=== PATIENT | female | born 1965 | race Caucasian/White ===

== ENCOUNTER 2021-04-01 08:19 | Day surgery (SDC) | payer MEDICAID ==
[2021-04-01] MEDS ORDERED: Midazolam 1 MG/ML 2 ML SDV IV ONE (08:20)
[2021-04-01] MEDS ORDERED: Scopolamine 1.5 MG Transdermal Patch TOP ONE (08:20)
[2021-04-01] MEDS ORDERED: Rocuronium 50 MG/5 ML Vial IV ONE (08:20)
[2021-04-01] MEDS ORDERED: fentaNYL 100 MCG/2 ML SDV IV ONE (08:20)
[2021-04-01] MEDS ORDERED: Ketorolac 30 MG/ML SDV IVPUSH ONE (08:20)
[2021-04-01] MEDS ORDERED: Ondansetron 4 MG/2 ML SDV IVPUSH ONE (08:20)
[2021-04-01] MEDS ORDERED: Glycopyrrolate 0.2 MG/ML 5 ML MDV IV ONE (08:20)
[2021-04-01] MEDS ORDERED: Propofol 200 MG/20 ML SDV IV ONE (08:20)
[2021-04-01] MEDS ORDERED: Lactated Ringers 1,000 ML IV ONE (08:20)
[2021-04-01] MEDS ORDERED: Lactated Ringers 1,000 ML IV SCH (08:30)
[2021-04-01] MEDS ORDERED: Sodium Chloride 0.9% 10 ML Syringe FLUSH PRN (08:30)
--- NOTE | 2021-04-01 10:19 | PCM.HPR ---
H & P Addendum review - H & P Addendum Review Date of Original H & P: 03/11/21 Date Reviewed: 04/01/21 Time Reviewed: 10:19 Patient was Examined: No Changes
--- NOTE | 2021-04-01 12:02 | PCM.OPNOTE ---
- General Post-Op/Procedure Note Date of Surgery/Procedure: 04/01/21 Operative Procedure(s): Lap jared Findings: Chronic Cholecystitis Pre Op Diagnosis: Chronic Cholecystitis Post-Op Diagnosis: Same Anesthesia Technique: General ET Tube Primary Surgeon: Dontrell Chakraborty Pathology: GB EBL in mLs: 5 Complications: None Condition: Good
[2021-04-01] MEDS ORDERED: Albuterol/Ipratropium 3.0-0.5 MG/3 ML Neb Soln NEB ONE (13:05)
--- NOTE | 2021-04-01 14:11 | OR ---
DATE OF OPERATION: 04/01/2021 SURGEON: Dontrell Chakraborty MD PREOPERATIVE DIAGNOSIS: Chronic cholecystitis. POSTOPERATIVE DIAGNOSIS: Chronic cholecystitis. PROCEDURE: Laparoscopic cholecystectomy. ANESTHESIA: General. DESCRIPTION OF PROCEDURE: The patient was brought to the operating room where general endotracheal anesthesia was administered. Time-out was performed. The abdomen was prepped and draped sterilely. An infraumbilical incision was made and extended into the peritoneal cavity without difficulty. The Narayan cannulator was introduced and pneumoperitoneum obtained. Three 5 mm ports were placed in the usual positions. The patient was placed in reverse Trendelenburg position and rotated to the left. Gallbladder was grasped and retracted cephalad. The gallbladder was mostly intrahepatic making dissection and visualization more difficult. The peritoneum was stripped around the lower portion of the gallbladder and the cystic artery was divided into 3 branches coursing around the gallbladder neck and keeping it close to the liver. I had to carefully dissect away these branches to expose the neck of the gallbladder. The branches were clipped proximally and either clipped or cauterized distally. I was able to then work around the base of the gallbladder and dissect the neck circumferentially. There was much fibrous connective tissue keeping the cystic duct adherent to the base of the liver. I was careful to fully dissect this away and fibrous bands cauterized to expose this. I was then able to see enough the cystic duct and milked it back into the gallbladder, and then doubly clipped it proximally and once distally and then transected it. Gallbladder was then removed from the bed of the liver without difficulty. It was brought out through the umbilical port site. The right upper quadrant was inspected and irrigated, and return was clear and hemostasis assured. Ports were removed under direct vision and remained hemostatic. Umbilical fascia was closed with [id number] 0 Vicryl. Skin was closed with 4-0 Vicryl subcuticular sutures. Benzoin and Steri-Strips were placed and Band-Aids applied. The patient tolerated the procedure well. Estimated blood loss 5 mL. She returned to postanesthesia in stable condition. /[id number] LAURA/JAMAL BEEBE
== END 2021-04-01 14:00 | disposition home or self-care (01) ==
LOC: FB.SDS 08:19
PROVIDERS: ATTEND Surgery
DX: K81.1 Chronic cholecystitis (principal); E11.9 Type 2 diabetes mellitus without complications; Z88.0 Allergy status to penicillin; Z88.2 Allergy status to sulfonamides; Z88.6 Allergy status to analgesic agent
CPT/HCPCS: 00790; 47562; 71045; 82947; 88304; 94150; 94640; A9270; J1885; J2250; J2405; J2704; J3010; J3490; J7120; J7620-GY

== ENCOUNTER 2021-07-29 21:55 | Emergency (ER) | payer MEDICAID, OTHER ==
[2021-07-29] MEDS ORDERED: Insulin Lispro 100 Unit/ML 3 ML KwikPen SUBCUT ONE (21:56)
[2021-07-29] MEDS ORDERED: Sodium Chloride 0.9% 10 ML Syringe FLUSH PRN (22:33)
[2021-07-29] MEDS ORDERED: Ketorolac 30 MG/ML SDV IVPUSH ONE (22:34)
[2021-07-29] MEDS ORDERED: Labetalol 20 MG/4 ML Syringe IVPUSH ONE (22:34)
[2021-07-29] MEDS ORDERED: Ondansetron 4 MG/2 ML SDV IVPUSH STA (22:58)
[2021-07-29] MEDS ORDERED: Glucagon,Human Recombinant 1 MG Vial IM PRN (23:10)
[2021-07-29] MEDS ORDERED: Insulin Lispro 100 Unit/ML 3 ML KwikPen SUBCUT STA (23:10)
[2021-07-29] MEDS ORDERED: 50% Dextrose in Water 50 ML Syringe IVPUSH PRN (23:10)
--- NOTE | 2021-07-29 23:10 | EDM.PDOC ---
ED HPI GENERAL MEDICAL PROBLEM - General Stated Complaint: HIGH BP Time Seen by Provider: 07/29/21 22:30 Source of Information: Reports: Patient, Family History Limitations: Reports: No Limitations - History of Present Illness INITIAL COMMENTS - FREE TEXT/NARRATIVE: Patient presented to the ED with her because of headache and elevated BP of 180/120. There is no associated chest pain, dyspnea, palpitations. She also has a history of HTN taking Coreg 25 mg BID and DM2 which is poorly controlled. Headache Pain Score (Numeric/FACES): 8 - Related Data Allergies Allergy/AdvReac Type Severity Reaction Status Date / Time hydroxychloroquine Allergy Dizziness Verified 07/29/21 22:33 [From Plaquenil] Penicillins Allergy Rash Verified 07/29/21 22:33 sulfamethoxazole Allergy Rash Verified 07/29/21 22:33 [From Bactrim] trimethoprim [From Bactrim] Allergy Rash Verified 07/29/21 22:33 Home Meds: Home Meds Anastrozole [Arimidex] 1 mg PO DAILY 03/31/21 [History] Aspirin [Adult Low Dose Aspirin EC] 81 mg PO DAILY 03/31/21 [History] Cyanocobalamin (Vitamin B-12) [Vitamin B-12] 1,000 mcg PO DAILY 03/31/21 [History] Cyclobenzaprine [Flexeril] 10 mg PO TID PRN 03/31/21 [History] Empagliflozin [Jardiance] 25 mg PO DAILY 03/31/21 [History] Escitalopram [Lexapro] 10 mg PO BEDTIME 03/31/21 [History] Gabapentin [Neurontin] 600 mg PO QID 03/31/21 [History] Insulin Glarg,Human.Rec.Analog [Lantus Solostar] 55 unit SQ BID 03/31/21 [History] Levothyroxine 25 mcg PO ACBREAKFAST 03/31/21 [History] Lidocaine 4% [Aspercreme 4%] 1 each TP DAILY 03/31/21 [History] Magnesium Chloride [Mag Delay] 64 mg PO DAILY 03/31/21 [History] Montelukast [Singulair] 10 mg PO BEDTIME 03/31/21 [History] Multivitamin with Minerals [Multiple Vitamin] 1 tab PO DAILY 03/31/21 [History] Nitroglycerin [Nitrostat] 0.4 mg SL ASDIRECTED PRN 03/31/21 [History] Omeprazole 20 mg PO BIDAC 03/31/21 [History] SUMAtriptan 100 mg PO ASDIRECTED PRN 03/31/21 [History] Topiramate [Topamax] 150 mg PO BEDTIME 03/31/21 [History] Venlafaxine HCl [Venlafaxine ER] 150 mg PO DAILY 03/31/21 [History] amLODIPine [Norvasc] 7.5 mg PO DAILY 03/31/21 [History] atorvaSTATin [Lipitor] 10 mg PO DAILY 03/31/21 [History] carvediloL [Carvedilol] 25 mg PO BIDMEALS 03/31/21 [History] lamoTRIgine [Lamictal] 150 mg PO DAILY 03/31/21 [History] metFORMIN [Glucophage] 1,000 mg PO BIDMEALS 03/31/21 [History] Benzonatate [Tessalon Perles] 100 mg PO TID 07/30/21 [History] Galcanezumab-Gnlm [Emgality] 120 mg SQ ASDIRECTED 07/30/21 [History] Insulin Aspart [Novolog Flexpen] 5 - 10 unit SQ TID 07/30/21 [History] Metoclopramide [Reglan] 5 mg PO QIDACANDBED 07/30/21 [History] hydrOXYzine pamoate [Hydroxyzine Pamoate] 100 mg PO TID 07/30/21 [History] Past Medical History Cardiovascular History: Reports: CAD, High Cholesterol, Hypertension Respiratory History: Reports: None, SOB Musculoskeletal History: Reports: RA Neurological History: Reports: Migraines Psychiatric History: Reports: Depression Endocrine/Metabolic History: Reports: Diabetes, Type II, Hypothyroidism, Obesity/BMI 30+ Oncologic (Cancer) History: Reports: Breast - Past Surgical History Cardiovascular Surgical History: Reports: Coronary Artery Stent GI Surgical History: Reports: EGD Social & Family History - Caffeine Use Caffeine Use: Reports: Soda ED ROS GENERAL - Review of Systems Review Of Systems: See Below Constitutional: Reports: No Symptoms HEENT: Reports: No Symptoms Respiratory: Reports: No Symptoms Cardiovascular: Reports: No Symptoms Endocrine: Reports: No Symptoms GI/Abdominal: Reports: No Symptoms : Reports: No Symptoms Musculoskeletal: Reports: No Symptoms Skin: Reports: No Symptoms Neurological: Reports: Headache Psychiatric: Reports: No Symptoms ED EXAM, GENERAL - Physical Exam Exam: See Below Exam Limited By: No Limitations General Appearance: Alert, No Apparent Distress Eye Exam: Bilateral Eye: PERRL Ears: Normal External Exam, Normal Canal Nose: Normal Inspection, Normal Mucosa, No Blood Throat/Mouth: Normal Inspection, Normal Lips, Normal Teeth Head: Atraumatic, Normocephalic Neck: Normal Inspection, Supple, Non-Tender, Full Range of Motion Respiratory/Chest: No Respiratory Distress, Lungs Clear, Normal Breath Sounds, No Accessory Muscle Use, Chest Non-Tender Cardiovascular: Normal Peripheral Pulses, Regular Rate, Rhythm, No Edema, No G allop, No JVD, No Murmur, No Rub GI/Abdominal: Normal Bowel Sounds, Soft, Non-Tender, No Organomegaly, No Distention, No Abnormal Bruit Extremities: Normal Inspection, Normal Range of Motion, Non-Tender, No Pedal Edema, Normal Capillary Refill Neurological: Alert, Oriented, CN II-XII Intact, Normal Cognition, Normal Gait, Normal Reflexes, No Motor/Sensory Deficits Psychiatric: Normal Affect Skin Exam: Warm Course - Vital Signs Text/Narrative:: Lab result was reviewed and discussed with patient and her spouse Labetalol 20 mg IV x2 Toradol 30 mg IV x1 Humalog 20 U SC x1 Zofran 4 mg IV x1 Last Recorded V/S: Last Vital Signs Temp 36.3 C 07/29/21 22:15 Pulse 93 07/29/21 22:15 Resp 20 07/29/21 22:15 BP 174/121 H 07/29/21 22:15 Pulse Ox 97 07/29/21 22:15 - Orders/Labs/Meds Orders: Active Orders 24 hr Category Date Time Status Peripheral IV Insertion Adult [OM.PC] Routine Oth 07/29/21 22:33 Ordered Labs: Laboratory Tests 07/29/21 07/29/21 07/29/21 Range/Units 22:40 22:40 22:40 WBC 7.2 (3.0-10.3) x10-3/uL RBC 5.23 H (3.60-5.20) x10(6)uL Hgb 13.3 (11.4-15.5) g/dL Hct 39.7 (34.2-48.2) % MCV 75.8 L (76.7-100.5) fL MCH 25.5 (23.9-33.9) pg MCHC 33.6 (31.9-34.8) g/dL RDW 15.1 (12.3-16.5) % Plt Count 212 (151-488) x10(3)uL MPV 7.1 (7.1-12.4) fL Neut % (Auto) 70.6 (30.8-76.2) % Lymph % (Auto) 19.7 (18.4-52.1) % [place] % (Auto) 5.8 (4.4-15.7) % Eos % (Auto) 2.6 (0.6-8.1) % Baso % (Auto) 1.3 (0.2-1.5) % Neut # (Auto) 5.1 (1.5-6.3) x10-3/uL Lymph # (Auto) 1.4 (1.0-4.4) x10-3/uL [place] # (Auto) 0.4 (0.3-1.0) x10-3/uL Eos # (Auto) 0.2 (0.0-0.8) x10-3/uL Baso # (Auto) 0.1 (0.0-0.1) x10-3/uL Sodium 133 L (135-145) mmol/L Potassium 3.6 (3.5-5.3) mmol/L Chloride 98 L (100-110) mmol/L Carbon Dioxide 26 (21-32) mmol/L BUN 11 (7-18) mg/dL Creatinine 0.9 (0.55-1.02) mg/dL Est Cr Clr Drug Dosing TNP Estimated GFR (MDRD) > 60 (>60) BUN/Creatinine Ratio 12.2 (9-20) Glucose 456 H* (80-116) mg/dL POC Glucose (80-116) mg/dL Calcium 8.2 L (8.6-10.2) mg/dL Total Bilirubin 0.6 (0.1-1.3) mg/dL AST 15 D (5-25) IU/L ALT 24 D (12-36) U/L Alkaline Phosphatase 137 H (56-112) IU/L Troponin I 14.3 (4.0-60.3) pg/mL Total Protein 6.6 (6.0-8.0) g/dL Albumin 3.7 (3.5-5.2) g/dL Globulin 2.9 g/dL Albumin/Globulin Ratio 1.3 07/30/21 Range/Units 00:57 WBC (3.0-10.3) x10-3/uL RBC (3.60-5.20) x10(6)uL Hgb (11.4-15.5) g/dL Hct (34.2-48.2) % MCV (76.7-100.5) fL MCH (23.9-33.9) pg MCHC (31.9-34.8) g/dL RDW (12.3-16.5) % Plt Count (151-488) x10(3)uL MPV (7.1-12.4) fL Neut % (Auto) (30.8-76.2) % Lymph % (Auto) (18.4-52.1) % [place] % (Auto) (4.4-15.7) % Eos % (Auto) (0.6-8.1) % Baso % (Auto) (0.2-1.5) % Neut # (Auto) (1.5-6.3) x10-3/uL Lymph # (Auto) (1.0-4.4) x10-3/uL [place] # (Auto) (0.3-1.0) x10-3/uL Eos # (Auto) (0.0-0.8) x10-3/uL Baso # (Auto) (0.0-0.1) x10-3/uL Sodium (135-145) mmol/L Potassium (3.5-5.3) mmol/L Chloride (100-110) mmol/L Carbon Dioxide (21-32) mmol/L BUN (7-18) mg/dL Creatinine (0.55-1.02) mg/dL Est Cr Clr Drug Dosing Estimated GFR (MDRD) (>60) BUN/Creatinine Ratio (9-20) Glucose (80-116) mg/dL POC Glucose 378 H D (80-116) mg/dL Calcium (8.6-10.2) mg/dL Total Bilirubin (0.1-1.3) mg/dL AST (5-25) IU/L ALT (12-36) U/L Alkaline Phosphatase (56-112) IU/L Troponin I (4.0-60.3) pg/mL Total Protein (6.0-8.0) g/dL Albumin (3.5-5.2) g/dL Globulin g/dL Albumin/Globulin Ratio Meds: Medications Discontinued Medications Generic Name Dose Route Start Last Admin Trade Name Freq PRN Reason Stop Dose Admin Dextrose/Water 50 ml 07/29/21 23:10 50% Dextrose In Water 50 Ml Syringe IVPUSH ASDIRECTED PRN Hypoglycemia Glucagon 1 mg 07/29/21 23:10 Glucagon,Human Recombinant 1 Mg Vial IM ASDIRECTED PRN Hypoglycemia Insulin Human Lispro 20 unit 07/29/21 23:10 07/29/21 23:39 Insulin Lispro 100 Unit/Ml 3 Ml Kwikpen SUBCUT 07/29/21 23:11 20 units NOW STA Administration Insulin Human Lispro 300 unit 07/29/21 21:56 Insulin Lispro 100 Unit/Ml 3 Ml Kwikpen SUBCUT 07/29/21 21:57 .STK-MED ONE Ketorolac Tromethamine 30 mg 07/29/21 22:34 07/29/21 23:20 Ketorolac 30 Mg/Ml Sdv IVPUSH 07/29/21 22:35 30 mg ONETIME ONE Administration Labetalol HCl 20 mg 07/29/21 22:34 07/29/21 23:25 Labetalol 20 Mg/4 Ml Syringe IVPUSH 07/29/21 22:35 20 mg ONETIME ONE Administration Protocol Labetalol HCl 20 mg 07/29/21 23:55 07/30/21 00:10 Labetalol 20 Mg/4 Ml Syringe IVPUSH 07/29/21 23:56 20 mg NOW STA Administration Protocol Labetalol HCl Confirm 07/30/21 00:08 07/30/21 00:20 Labetalol 20 Mg/4 Ml Syringe Administered 07/30/21 00:09 Not Given Dose 20 mg .ROUTE .STK-MED ONE Ondansetron HCl 4 mg 07/29/21 22:58 07/29/21 23:21 Ondansetron 4 Mg/2 Ml Sdv IVPUSH 07/29/21 22:59 4 mg NOW STA Administration Sodium Chloride 10 ml 07/29/21 22:33 07/29/21 23:20 Sodium Chloride 0.9% 10 Ml Syringe FLUSH 10 ml ASDIRECTED PRN Administration Keep Vein Open Departure - Departure Time of Disposition: 12:00 Disposition: Home, Self-Care 01 Condition: Good Clinical Impression: Hypertensive crisis, Hyperglycemia due to type 2 diabetes mellitus - Discharge Information Instructions: Hyperglycemia, [id number], Hypertension, Adult, [id number] Referrals: Daria Moore SENIOR MECHANICAL TECHNICIAN [Primary Care Provider] - Forms: ED Department Discharge Additional Instructions: Please read discharge instructions on high blood pressure Low salt,low fat diet and exercise Coreg 25 mg twice daily Increase your amlodipine from 7.5 mg to 10 mg daily starting tomorrow Be serious about the treatment regimen for your diabetes , it's poorly controlled Take Lantus insulin when get home Follow up tomorrow with your regular MD at the clinic - My Orders Last 24 Hours: My Active Orders 07/29/21 22:33 Peripheral IV Insertion Adult [OM.PC] Routine - Assessment/Plan Last 24 Hours: My Active Orders 07/29/21 22:33 Peripheral IV Insertion Adult [OM.PC] Routine
[2021-07-29] MEDS ORDERED: Labetalol 20 MG/4 ML Syringe IVPUSH STA (23:55)
[2021-07-30] MEDS ORDERED: Labetalol 20 MG/4 ML Syringe ONE (00:08)
== END 2021-07-30 01:15 | disposition home or self-care (01) ==
LOC: FB.ED 21:55
DX: I16.9 Hypertensive crisis, unspecified (principal); E11.65 Type 2 diabetes mellitus with hyperglycemia; I25.10 Atherosclerotic heart disease of native coronary artery without angina pectoris; E78.00 Pure hypercholesterolemia, unspecified; M06.9 Rheumatoid arthritis, unspecified; E03.9 Hypothyroidism, unspecified; E66.9 Obesity, unspecified; Z68.29 Body mass index [BMI] 29.0-29.9, adult; Z88.8 Allergy status to other drugs, medicaments and biological substances; Z88.0 Allergy status to penicillin; Z88.2 Allergy status to sulfonamides; Z79.82 Long term (current) use of aspirin; Z79.4 Long term (current) use of insulin; Z79.899 Other long term (current) drug therapy
CPT/HCPCS: 36415; 80053; 82947; 84484; 85025; 96374; 96375; 96376; 99284-25; J1815; J1885; J2405; J3490

== ENCOUNTER 2021-07-31 05:17 | Emergency (ER) | payer MEDICAID, OTHER ==
[2021-07-31] MEDS ORDERED: Sodium Chloride 0.9% 10 ML Syringe FLUSH PRN (05:32)
[2021-07-31] MEDS ORDERED: Enalaprilat 1.25 MG/ML SDV IVPUSH ONE (05:32)
[2021-07-31] MEDS ORDERED: Ondansetron 4 MG/2 ML SDV IVPUSH ONE (06:16)
[2021-07-31] MEDS ORDERED: Ketorolac 30 MG/ML SDV IVPUSH ONE (06:16)
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
[2021-07-31] MEDS ORDERED: Potassium Chloride 10 MEQ in Premix Bag 1 BAG IV ONE (06:25)
[2021-07-31] MEDS: Potassium Chloride 20 MEQ Tab.ER PO ONE ×2 (06:30→07:44)
[2021-07-31] MEDS ORDERED: Labetalol 20 MG/4 ML Syringe IVPUSH STA ×2 (08:17→08:27)
[2021-07-31] MEDS ORDERED: Potassium Chloride 20 MEQ Tab.ER PO ONE (08:17)
[2021-07-31] MEDS ORDERED: Hydrochlorothiazide 25 MG Tab PO SCH (09:00)
[2021-07-31] MEDS ORDERED: Hydrochlorothiazide/Lisinopril 25-20 MG Tab PO SCH (09:00)
[2021-07-31] MEDS ORDERED: Lisinopril 20 MG Tab PO SCH (09:00)
== END 2021-07-31 09:15 | disposition home or self-care (01) ==
LOC: FB.ED 05:17
DX: I16.9 Hypertensive crisis, unspecified (principal); I10 Essential (primary) hypertension; E87.6 Hypokalemia; E11.65 Type 2 diabetes mellitus with hyperglycemia; E11.42 Type 2 diabetes mellitus with diabetic polyneuropathy; E03.9 Hypothyroidism, unspecified; E66.9 Obesity, unspecified; I25.10 Atherosclerotic heart disease of native coronary artery without angina pectoris; E78.00 Pure hypercholesterolemia, unspecified; Z68.29 Body mass index [BMI] 29.0-29.9, adult; Z95.5 Presence of coronary angioplasty implant and graft; Z88.0 Allergy status to penicillin; Z88.1 Allergy status to other antibiotic agents; Z88.8 Allergy status to other drugs, medicaments and biological substances; Z79.82 Long term (current) use of aspirin; Z79.4 Long term (current) use of insulin; Z79.899 Other long term (current) drug therapy; Z20.822 Contact with and (suspected) exposure to COVID-19
CPT/HCPCS: 36415; 70450; 80048; 84484; 93005; 96365; 96374; 96375; 99284-25; A9270-GY; J1885; J2405; J3480; J3490; U0002

== ENCOUNTER 2022-08-05 09:45 | Emergency (ER) | payer MEDICAID ==
[2022-08-05] MEDS ORDERED: hydrOXYzine HCl 50 MG/ML SDV IM ONE (11:04)
[2022-08-05] MEDS ORDERED: SUMAtriptan 6 MG/0.5 ML SDV SUBCUT ONE (11:04)
[2022-08-05 11:24] LABS: ESTIMATED GFR 59 mL/min (>60)
== END 2022-08-05 12:00 | disposition home or self-care (01) ==
LOC: FB.ED 09:45
DX: G43.909 Migraine, unspecified, not intractable, without status migrainosus (principal); T50.B95A Adverse effect of other viral vaccines, initial encounter; E87.6 Hypokalemia; I25.10 Atherosclerotic heart disease of native coronary artery without angina pectoris; E78.00 Pure hypercholesterolemia, unspecified; I10 Essential (primary) hypertension; M06.9 Rheumatoid arthritis, unspecified; E11.9 Type 2 diabetes mellitus without complications; E03.9 Hypothyroidism, unspecified; E66.9 Obesity, unspecified; Z68.25 Body mass index [BMI] 25.0-25.9, adult; Z88.8 Allergy status to other drugs, medicaments and biological substances; Z88.2 Allergy status to sulfonamides; Z79.82 Long term (current) use of aspirin; Z79.4 Long term (current) use of insulin; Z79.899 Other long term (current) drug therapy
CPT/HCPCS: 36415; 80048; 85025; 96372; 99284; J3030; J3410

== ENCOUNTER 2022-12-16 14:49 | Inpatient (IN) | payer MEDICAID, OTHER ==
[2022-12-16] MEDS ORDERED: Sodium Chloride 0.9% 500 ML IV ONE (16:52)
[2022-12-16] MEDS ORDERED: Sodium Chloride 0.9% 10 ML Syringe FLUSH PRN (16:52)
[2022-12-16] MEDS ORDERED: Ondansetron 4 MG/2 ML SDV IVPUSH ONE (16:53)
[2022-12-16 17:40] LABS: ESTIMATED GFR 35 mL/min (>60)
[2022-12-16] MEDS: Sodium Chloride 0.9% 1,000 ML IV SCH ×2 (17:48→22:45)
[2022-12-16] MEDS ORDERED: Glucagon,Human Recombinant 1 MG Vial IM PRN (19:20)
[2022-12-16] MEDS ORDERED: Insulin Regular, Human 100 Units/ML 3 ML Vial IV ONE (19:20)
[2022-12-16] MEDS ORDERED: Sodium Chloride 0.9% 1,000 ML IV ONE (19:20)
[2022-12-16] MEDS ORDERED: 50% Dextrose in Water 50 ML Syringe IVPUSH PRN (19:20)
[2022-12-17] MEDS ORDERED: Ondansetron 4 MG/2 ML SDV IV PRN (01:05)
[2022-12-17] MEDS ORDERED: 50% Dextrose in Water 50 ML Syringe IVPUSH PRN (01:12)
[2022-12-17] MEDS ORDERED: Glucagon,Human Recombinant 1 MG Vial IM PRN (01:12)
[2022-12-17] MEDS ORDERED: cefTRIAXone 2 GM Vial IVPUSH SCH (01:30)
[2022-12-17] MEDS ORDERED: Lidocaine 4% 1 each Patch TOP SCH (04:15)
[2022-12-17 07:01] LABS: ESTIMATED GFR 75 mL/min (>60)
[2022-12-17] MEDS: Sodium Chloride 0.9% 1,000 ML IV SCH (07:01)
[2022-12-17] MEDS ORDERED: Insulin Lispro 100 Unit/ML 3 ML KwikPen SUBCUT ONE (07:32)
[2022-12-17] MEDS: Insulin Lispro 100 Unit/ML 3 ML KwikPen SUBCUT SCH ×4 (07:34→20:53)
[2022-12-17] MEDS: Potassium Chloride 20 MEQ Tab.ER PO SCH ×3 (09:00→21:07)
[2022-12-17] MEDS: NS + KCl 20mEq/L 1,000 ML IV SCH ×2 (09:00→16:44)
[2022-12-17] MEDS ORDERED: Cyclobenzaprine 10 MG Tab PO PRN (09:18)
[2022-12-17] MEDS: Gabapentin 600 MG Tab PO SCH ×4 (10:15→21:12)
[2022-12-17] MEDS: Acetaminophen 325 MG Tab PO PRN ×2 (13:27→17:32)
[2022-12-17] MEDS ORDERED: Cyclobenzaprine 10 MG Tab PO SCH (21:00)
[2022-12-17] MEDS ORDERED: Levothyroxine 25 MCG Tab PO SCH (21:00)
[2022-12-17] MEDS ORDERED: Anastrozole 1 MG Tab PO SCH (21:00)
[2022-12-17] MEDS ORDERED: Aspirin 81 MG Tab.EC PO SCH (21:00)
[2022-12-17] MEDS ORDERED: Escitalopram 10 MG Tab PO SCH (21:00)
[2022-12-17] MEDS ORDERED: Cyanocobalamin (Vitamin B12) 1,000 MCG Tab PO SCH (21:00)
[2022-12-17] MEDS ORDERED: atorvaSTATin 10 MG Tab PO SCH (21:00)
[2022-12-17] MEDS ORDERED: hydrOXYzine HCl 25 MG Tab PO SCH (21:00)
[2022-12-17] MEDS ORDERED: Topiramate 50 MG Tab PO SCH (21:00)
[2022-12-17] MEDS ORDERED: Multivitamins with Iron/Calcium/Folic Acid/Minerals Tab PO SCH (21:00)
[2022-12-17] MEDS ORDERED: Empagliflozin 25 MG Tab PO SCH (21:00)
[2022-12-17] MEDS ORDERED: Venlafaxine 150 MG Cap.ER PO SCH (21:00)
[2022-12-17] MEDS ORDERED: lamoTRIgine 100 MG Tab PO SCH (21:00)
[2022-12-18] MEDS: NS + KCl 20mEq/L 1,000 ML IV SCH ×2 (01:21→08:33)
[2022-12-18] MEDS: oxyCODONE 5 MG Tab PO PRN ×2 (05:46→14:45)
[2022-12-18 06:43] LABS: ESTIMATED GFR 105 mL/min (>60)
[2022-12-18 07:08] LABS: HEMOGLOBIN A1C 10.7 % (<5.7)
[2022-12-18] MEDS: Insulin Lispro 100 Unit/ML 3 ML KwikPen SUBCUT SCH ×2 (08:28→13:14)
[2022-12-18] MEDS: Potassium Chloride 20 MEQ Tab.ER PO SCH ×2 (08:29→13:16)
[2022-12-18] MEDS: Gabapentin 600 MG Tab PO SCH ×2 (08:32→13:17)
[2022-12-18] MEDS ORDERED: Lidocaine 4% 1 each Patch TOP SCH (09:00)
== END 2022-12-18 15:55 | disposition home or self-care (01) | DRG 638 ==
LOC: FB.ED 14:49 → FB.MS 22:30 → OBSVTOIN 12-17 09:20
PROVIDERS: ADMIT Emergency Medicine; ATTEND Family Medicine
DX: E11.65 Type 2 diabetes mellitus with hyperglycemia (principal); F33.1 Major depressive disorder, recurrent, moderate; S22.49XA Multiple fractures of ribs, unspecified side, initial encounter for closed fracture; I25.10 Atherosclerotic heart disease of native coronary artery without angina pectoris; E87.6 Hypokalemia; I95.9 Hypotension, unspecified; E78.5 Hyperlipidemia, unspecified; M06.9 Rheumatoid arthritis, unspecified; H54.7 Unspecified visual loss; E78.00 Pure hypercholesterolemia, unspecified; N32.81 Overactive bladder; I10 Essential (primary) hypertension; E11.42 Type 2 diabetes mellitus with diabetic polyneuropathy; Z88.0 Allergy status to penicillin; Z88.2 Allergy status to sulfonamides; Z88.1 Allergy status to other antibiotic agents; Z79.82 Long term (current) use of aspirin; Z79.890 Hormone replacement therapy; Z79.899 Other long term (current) drug therapy; Z98.49 Cataract extraction status, unspecified eye; Z90.710 Acquired absence of both cervix and uterus; W19.XXXA Unspecified fall, initial encounter
CPT/HCPCS: 36415; 70450; 71250; 72125; 74176; 80048; 80053; 81001; 82947; 83036; 83605; 83735; 84132; 84484; 85025; 87086; 87088; 87186; 93005; 96361; 96374; 96375; 97161-GP; 97165-GO; 99285-25; A9270-GY; G0378; J0696; J1815; J1815-GY; J2405; J3480; J7030; J7040; U0002

== ENCOUNTER 2023-04-16 10:29 | Emergency (ER) | payer MEDICAID, OTHER ==
[2023-04-16] MEDS ORDERED: Acetaminophen/oxyCODONE 325-5 MG Tab PO ONE (10:30)
[2023-04-16] MEDS ORDERED: Ondansetron 4 MG Tab.DIS PO ONE (10:30)
[2023-04-16] MEDS: Sodium Chloride 0.9% 10 ML Syringe FLUSH PRN ×2 (10:35→18:43)
[2023-04-16] MEDS ORDERED: Sodium Chloride 0.9% 1,000 ML IV SCH ×2 (11:00→12:15)
[2023-04-16 11:12] LABS: BASOPHILS ABSOLUTE AUTO 0.1 x10-3/uL (0.0-0.1); EOSINOPHILS ABSOLUTE AUTO 0.3 x10-3/uL (0.0-0.8); EOSINOPHILS PERCENT AUTO 2.4 % (0.6-8.1); HEMATOCRIT 33.3 % (34.2-48.2); LYMPHOCYTES ABSOLUTE AUTO 1.3 x10-3/uL (1.0-4.4); LYMPHOCYTES PERCENT AUTO 12.4 % (18.4-52.1); MEAN CORPUSCULAR HEMOGLOBIN 28.4 pg (23.9-33.9); MEAN CORPUSCULAR HGB CONC 36.1 g/dL (31.9-34.8); MEAN CORPUSCULAR VOLUME 78.8 fL (76.7-100.5); MEAN PLATELET VOLUME 7.4 fL (7.1-12.4); MONOCYTES ABSOLUTE AUTO 0.6 x10-3/uL (0.3-1.0); MONOCYTES PERCENT AUTO 6.1 % (4.4-15.7); NEUTROPHILS ABSOLUTE AUTO 8.4 x10-3/uL (1.5-6.3); NEUTROPHILS PERCENT AUTO 78.1 % (30.8-76.2); PLATELET COUNT,PLT 237 x10(3)uL (151-488); RED BLOOD CELL COUNT 4.23 x10(6)uL (3.60-5.20); WHITE BLOOD CELL COUNT,WBC 10.7 x10-3/uL (3.0-10.3)
[2023-04-16 11:25] LABS: A/G RATIO 1.1; ALANINE AMINOTRANSFERASE,ALT 17 U/L (12-36); ALBUMIN 3.2 g/dL (3.5-5.2); ALKALINE PHOSPHATASE 115 IU/L (56-112); ASPARTATE AMNIOTRANSFERASE,AST 12 IU/L (5-25); BILIRUBIN TOTAL 0.5 mg/dL (0.1-1.3); BLOOD UREA NITROGEN,BUN 21 mg/dL (7-18); CALCIUM 7.7 mg/dL (8.6-10.2); CARBON DIOXIDE,CO2 30 mmol/L (21-32); CHLORIDE,CL 98 mmol/L (100-110); CREATININE 1.4 mg/dL (0.55-1.02); EST CRCL DRUG DOSING (CG) 43.11 mL/min; ESTIMATED GFR 44 mL/min (>60); GLUCOSE RANDOM 375 mg/dL (80-116); SODIUM,NA 140 mmol/L (135-145)
[2023-04-16 11:26] LABS: POTASSIUM,K 2.2 mmol/L (3.5-5.3)
[2023-04-16] MEDS ORDERED: Potassium Chloride 10 MEQ in Premix Bag 1 BAG IV ONE (11:33)
[2023-04-16] MEDS ORDERED: Potassium Chloride 20 MEQ Tab.ER PO ONE ×3 (11:33→16:00)
[2023-04-16] MEDS ORDERED: Acetaminophen 500 MG Tab PO ONE (11:38)
[2023-04-16] MEDS ORDERED: traMADol 50 MG Tab PO ONE (11:38)
[2023-04-16 12:22] LABS: BILIRUBIN,URINE NEGATIVE (NEGATIVE); GLUCOSE,URINE >1000 mg/dL (NORMAL); KETONES,URINE NEGATIVE (NEGATIVE); LEUKOCYTE ESTERASE,URINE NEGATIVE (NEGATIVE); NITRITE,URINE NEGATIVE (NEGATIVE); OCCULT BLOOD,URINE NEGATIVE (NEGATIVE); PROTEIN,URINE NEGATIVE (NEGATIVE); UROBILINOGEN,URINE NORMAL (NEGATIVE)
[2023-04-16 12:23] LABS: APPEARANCE,URINE CLEAR (CLEAR); COLOR,URINE YELLOW (YELLOW)
[2023-04-16 12:29] LABS: BACTERIA,URINE NOT SEEN (NS); RBC,URINE 0-5 (0-5); SQUAMOUS EPITHELIAL CELLS,UR RARE (NS,R,O); WBC,URINE 0-5 (0-5)
[2023-04-16 17:16] LABS: BLOOD UREA NITROGEN,BUN 17 mg/dL (7-18); BUN/CREATININE RATIO 15.5 (9-20); CALCIUM 7.5 mg/dL (8.6-10.2); CARBON DIOXIDE,CO2 31 mmol/L (21-32); CHLORIDE,CL 104 mmol/L (100-110); CREATININE 1.1 mg/dL (0.55-1.02); EST CRCL DRUG DOSING (CG) 54.87 mL/min; ESTIMATED GFR 59 mL/min (>60); GLUCOSE RANDOM 250 mg/dL (80-116); POTASSIUM,K 3.1 mmol/L (3.5-5.3); SODIUM,NA 142 mmol/L (135-145)
[2023-04-16] MEDS ORDERED: Acetaminophen/oxyCODONE 325-5 MG Tab PO PRN (18:05)
[2023-04-16] MEDS ORDERED: Ketorolac 30 MG/ML SDV IVPUSH ONE (18:05)
== END 2023-04-16 19:35 | disposition home or self-care (01) ==
LOC: FB.ED 10:29
DX: S82.832A Other fracture of upper and lower end of left fibula, initial encounter for closed fracture (principal); R55 Syncope and collapse; E87.6 Hypokalemia; I25.10 Atherosclerotic heart disease of native coronary artery without angina pectoris; E78.00 Pure hypercholesterolemia, unspecified; I10 Essential (primary) hypertension; E11.9 Type 2 diabetes mellitus without complications; E03.9 Hypothyroidism, unspecified; E66.9 Obesity, unspecified; Z88.0 Allergy status to penicillin; Z88.8 Allergy status to other drugs, medicaments and biological substances; Z88.1 Allergy status to other antibiotic agents; Z79.82 Long term (current) use of aspirin; Z79.899 Other long term (current) drug therapy; Z95.5 Presence of coronary angioplasty implant and graft; W18.30XA Fall on same level, unspecified, initial encounter
CPT/HCPCS: 36415; 70450; 73562; 73590; 73610; 80048; 80053; 81001; 82947; 84484; 85025; 93005; 96361; 96365; 96375; 99285; A9270; J1885; J3480; J3490; J7030; Q0162

== ENCOUNTER 2023-04-22 19:30 | Emergency (ER) | payer MEDICAID, OTHER ==
[2023-04-22] MEDS ORDERED: HYDROmorphone 2 MG/ML SDV IM ONE (21:44)
== END 2023-04-22 23:05 | disposition home or self-care (01) ==
LOC: FB.ED 19:30
DX: S32.10XA Unspecified fracture of sacrum, initial encounter for closed fracture (principal); E11.40 Type 2 diabetes mellitus with diabetic neuropathy, unspecified; E03.9 Hypothyroidism, unspecified; I25.10 Atherosclerotic heart disease of native coronary artery without angina pectoris; I10 Essential (primary) hypertension; E78.00 Pure hypercholesterolemia, unspecified; E66.9 Obesity, unspecified; Z68.26 Body mass index [BMI] 26.0-26.9, adult; Z88.0 Allergy status to penicillin; Z88.2 Allergy status to sulfonamides; Z88.8 Allergy status to other drugs, medicaments and biological substances; Z88.6 Allergy status to analgesic agent; Z79.899 Other long term (current) drug therapy; W18.30XA Fall on same level, unspecified, initial encounter
CPT/HCPCS: 72131; 72192; 96372; 99283; J1170

== ENCOUNTER 2024-04-25 16:39 | Emergency (ER) | payer MEDICAID ==
[2024-04-25] MEDS ORDERED: Sodium Chloride 0.9% 10 ML Syringe FLUSH PRN (17:45)
[2024-04-25 18:07] LABS: BASOPHILS ABSOLUTE AUTO 0.1 x10-3/uL (0.0-0.1); BASOPHILS PERCENT AUTO 0.8 % (0.2-1.5); EOSINOPHILS ABSOLUTE AUTO 0.1 x10-3/uL (0.0-0.8); HEMATOCRIT 38.3 % (34.2-48.2); HEMOGLOBIN 13.2 g/dL (11.4-15.5); LYMPHOCYTES ABSOLUTE AUTO 1.1 x10-3/uL (1.0-4.4); LYMPHOCYTES PERCENT AUTO 11.8 % (18.4-52.1); MEAN CORPUSCULAR HEMOGLOBIN 27.9 pg (23.9-33.9); MEAN CORPUSCULAR HGB CONC 34.5 g/dL (31.9-34.8); MEAN CORPUSCULAR VOLUME 80.8 fL (76.7-100.5); MEAN PLATELET VOLUME 7.5 fL (7.1-12.4); MONOCYTES ABSOLUTE AUTO 0.5 x10-3/uL (0.3-1.0); MONOCYTES PERCENT AUTO 4.9 % (4.4-15.7); NEUTROPHILS ABSOLUTE AUTO 7.7 x10-3/uL (1.5-6.3); NEUTROPHILS PERCENT AUTO 81.5 % (30.8-76.2); PLATELET COUNT,PLT 210 x10(3)uL (151-488); RED BLOOD CELL COUNT 4.75 x10(6)uL (3.60-5.20); RED CELL DISTRIBUTION WIDTH 15.2 % (12.3-16.5); WHITE BLOOD CELL COUNT,WBC 9.4 x10-3/uL (3.0-10.3)
[2024-04-25] MEDS: Sodium Chloride 0.9% 1,000 ML IV ONE (18:08)
[2024-04-25] MEDS: SUMAtriptan 6 MG/0.5 ML SDV SUBCUT ONE (18:09)
[2024-04-25] MEDS: Ondansetron 4 MG/2 ML SDV IVPUSH ONE (18:09)
[2024-04-25 18:10] LABS: BLOOD UREA NITROGEN,BUN 10 mg/dL (7-18); CALCIUM 8.7 mg/dL (8.6-10.2); CARBON DIOXIDE,CO2 27 mmol/L (21-32); CHLORIDE,CL 108 mmol/L (100-110); ESTIMATED GFR 65 mL/min (>60); GLUCOSE RANDOM 195 mg/dL (80-116); POTASSIUM,K 4.2 mmol/L (3.5-5.3); SODIUM,NA 144 mmol/L (135-145)
[2024-04-25 18:16] LABS: A/G RATIO 1.2; ALANINE AMINOTRANSFERASE,ALT 20 U/L (12-36); ALBUMIN 3.6 g/dL (3.5-5.2); ALKALINE PHOSPHATASE 91 IU/L (56-112); ASPARTATE AMNIOTRANSFERASE,AST 12 IU/L (5-25); BILIRUBIN TOTAL 0.6 mg/dL (0.1-1.3); PROTEIN TOTAL,TP 6.7 g/dL (6.0-8.0)
[2024-04-25 18:23] LABS: TROPONIN I 11.7 pg/mL (4.0-60.3)
[2024-04-25] MEDS: Metoprolol Succinate 50 MG Tab.ER PO ONE (19:57)
== END 2024-04-25 20:09 | disposition home or self-care (01) ==
LOC: FB.ED 16:39
DX: G43.909 Migraine, unspecified, not intractable, without status migrainosus (principal); I11.0 Hypertensive heart disease with heart failure; I50.9 Heart failure, unspecified; I25.10 Atherosclerotic heart disease of native coronary artery without angina pectoris; E78.00 Pure hypercholesterolemia, unspecified; E11.40 Type 2 diabetes mellitus with diabetic neuropathy, unspecified; E03.9 Hypothyroidism, unspecified; E66.9 Obesity, unspecified; Z79.899 Other long term (current) drug therapy; Z79.82 Long term (current) use of aspirin; Z88.8 Allergy status to other drugs, medicaments and biological substances; Z88.0 Allergy status to penicillin; Z88.2 Allergy status to sulfonamides
CPT/HCPCS: 36415; 80053; 83880; 84484; 85025; 85379; 93005; 96361; 96372; 96374; 99285; A9270; J2405; J3030; J7030; 93010; 99284